=== PATIENT | male | born 1975 | race Caucasian/White ===

== ENCOUNTER 2019-05-21 10:03 | Outpatient (CLI) | payer OTHER ==
--- NOTE | 2019-05-21 10:28 | RAD ---
XR Lumbar Spine 2 Or 3 View HISTORY: Low back pain. COMPARISON: None. FINDINGS: The vertebral bodies are normal in height. Small osteophytes are seen along the course of t he spine with some mild disc narrowing at L4-5 and minimal disc narrowing at L5-S1. No spondylolisthesis. IMPRESSION: Mild arthritic changes of the spine.
== END 2019-05-21 10:04 | disposition home or self-care (01) ==
LOC: TBSIIMAG 10:03
PROVIDERS: ATTEND Neurological Surgery
DX: M54.5 Low back pain (principal); M47.816 Spondylosis without myelopathy or radiculopathy, lumbar region
CPT/HCPCS: 72100

== ENCOUNTER 2019-06-05 07:47 | Outpatient (CLI) | payer OTHER ==
[2019-06-05 10:41] LABS: Hemoglobin 15.7 g/dL (14.0-18.0); Mean Corpuscular HGB CONC 33.6 g/dL (32.0-36.0); Mean Corpuscular Hemoglobin 31.3 pg (27.0-31.0); Mean Corpuscular Volume 93.1 fL (78.0-98.0); Mean Platelet Volume 7.6 fL (7.4-10.4); Platelet Count 243 thou/uL (130-400); RBC Distribution Width 11.4 % (11.5-14.5); Red Blood Cell (RBC) Count 5.01 mill/uL (4.70-6.10); White Blood Cell (WBC) Count 8.3 thou/uL (4.8-10.8)
[2019-06-05 11:27] LABS: Prothrombin Time 13.2 SEC (12.0-14.7)
== END 2019-06-05 07:48 | disposition home or self-care (01) ==
LOC: LABBT 07:47
PROVIDERS: ATTEND Neurological Surgery
DX: Z01.812 Encounter for preprocedural laboratory examination (principal); M51.26 Other intervertebral disc displacement, lumbar region
CPT/HCPCS: 85027; 85610; 85730

== ENCOUNTER 2019-06-06 08:24 | Day surgery (SDC) | payer OTHER ==
--- NOTE | 2019-06-04 21:24 | HP ---
HISTORY OF PRESENT ILLNESS: This is a 44 year old male who reports to the office for evaluation of low back and right leg pain. The patient states that he has had low back pain for about 5 years, in the past injections and exercise have helped. About a year and a half ago, his pain started getting worse. He started having pain running down the back of his right leg to his ankle and the lateral part of his right foot. He states that recently he started to have pins and needles sensation in the same distribution. There are no left-sided symptoms. He has had 3 injections with no significant benefit and he just finished a round of physical therapy that did not give any lasting relief. He has tried anti-inflammatory, steroids, Tylenol No. 3, and tramadol. REVIEW OF SYSTEMS: A 10-point review of systems has been completed and is negative other than stated in the above HPI. PAST MEDICAL HISTORY: Allergies, migraines. PAST SURGICAL HISTORY: Lasix surgery and meniscectomy. FAMILY HISTORY: Father is alive, diagnosed with no disease. Mother is alive with asthma, thyroid disease, diabetes, and hypertension. SOCIAL HISTORY: The patient is a nonsmoker. Denies drug use. Uses alcohol occasionally. MEDICATIONS: 1. Tramadol. 2. Gabapentin. 3. Maxalt. ALLERGIES: AMOXICILLIN AND SULFA DRUGS. PHYSICAL EXAMINATION: CONSTITUTIONAL: Well appearing, well nourished, alert. RESPIRATIONS: Normal work of breathing on room air. NEUROLOGIC: Alert and oriented x3. Speech, spontaneous and fluent. Normal fund of knowledge. Cranial nerves grossly intact. EXTREMITIES: Lower extremities 5/5 bilateral strength, hip flexion, knee flexion, knee extension, dorsiflexion, plantar flexion, EHL, right S1 radiculopathy. Positive single leg raise. Right hip rotation normal bilaterally. Nontender to palpate lumbar spine. Deep tendon reflexes 2+ patellar, 2+ Achilles. Negative Babinski. No clonus. SENSORY: Decreased sensation, right lateral ankle. Gait and station, sit to stand normal. Normal gait. Heel and toe walk normal. IMAGING DATA: Lumbar MRI shows L5-S1 herniated nucleus pulposus on the right side. ASSESSMENT AND PLAN: Lumbar radiculopathy due to herniated nucleus pulposus. Dr. Cesar has offered to do a right-sided microdiskectomy L5-S1. The patient states that he understands the risks of surgery and is willing to proceed. Job ID: [id number]
[2019-06-05 09:25] VITALS: BMI 28.7
[2019-06-06] MEDS ORDERED: Clindamycin/D5W 900 mg/50 ml Premix Bag ONE ×2 (09:37→17:07)
[2019-06-06] MEDS ORDERED: Levofloxacin 500 mg/D5W 100 ml Premix Bag ONE (09:37)
[2019-06-06] MEDS ORDERED: Bupivacaine HCl 0.5%/Epinephrine 1:200,000/PF 30 ml Vial ONE (12:00)
[2019-06-06] MEDS ORDERED: Thrombin 5000 UNITS/5 ML VIAL ONE (12:00)
[2019-06-06] MEDS ORDERED: Sodium Chloride 0.9% 10 ML ONE (12:00)
[2019-06-06] MEDS ORDERED: Fentanyl 250 MCG/5 ML VIAL ONE (12:31)
[2019-06-06] MEDS ORDERED: Fentanyl 100 MCG/2 ML VIAL ONE ×3 (14:36→15:27)
[2019-06-06] MEDS ORDERED: Tamsulosin HCl 0.4 MG CAP ONE (14:50)
[2019-06-06] MEDS ORDERED: Promethazine HCl 25 MG/ML VIAL ONE (15:12)
--- NOTE | 2019-06-06 17:22 | OP ---
DATE OF PROCEDURE: 06/06/2019 MOTOR EXPERT: None. PREOPERATIVE INDICATION: Treat pain and prevent neurological deterioration. PREOPERATIVE DIAGNOSIS: Intervertebral disk herniation, right L5-S1, with S1 radiculopathy. POSTOPERATIVE DIAGNOSIS: Intervertebral disk herniation, right L5-S1, with S1 radiculopathy. OPERATIVE PROCEDURE: Right L5-S1 partial hemilaminectomy, medial facetectomy, microdiskectomy, and operating microscope. PREOPERATIVE MEDICATIONS: Clindamycin 900 mg IV and Levaquin 500 mg IV. DRAIN NUMBER: Zero. DRAIN TYPE: None. DESCRIPTION OF PROCEDURE: The patient was brought to the operating room. General endotracheal anesthesia was induced. The patient was carefully positioned prone on the operating table with the chest and hips supported by gel-filled chest rolls. A lateral fluoro radiograph was used to plan our incision. The lumbar skin was sterilely prepped and draped. We opened with a 10 blade knife. We controlled bleeding with bipolar cautery. We used monopolar cautery to dissect through subcutaneous tissues to the thoracodorsal fascia. We incised the fascia right of the midline and reflected the paraspinal muscles off the spinous process of L5 and the sacrum as well as the right lateral aspect of the lamina of L5 and S1. We placed a marker on the facet joint and took a lateral fluoro radiograph to confirm the level upon which we were operating. A self-retaining retractor was placed. A Kerrison rongeur was used to fashion our partial hemilaminectomy and medial facetectomy at L5-S1. The operative microscope was brought into the field. Under microscopic magnification and using microsurgical techniques, we carefully removed the yellow ligament in a piecemeal fashion. We identified the S1 nerve root. We performed a wide foraminotomy over the nerve root and then gently retracted it medially. Under the nerve root and its ventral aspect, there was intervertebral disk herniation in the ventral epidural space. We incised the lateral aspect of the disk herniation and we removed a large fragment of disk as a single piece. We probed the ventral epidural space and found no more disk fragments. All of the intervertebral disks in the interspace were densely adherent to the endplates. We left it intact. We irrigated copiously with bacitracin irrigation. We controlled epidural bleeding with gentle bipolar cautery. We waxed the bone edges. We infused local anesthetic in the paraspinal muscles. We closed the wound in anatomical layers. We applied a sterile dressing. This was a clean case, no contamination. Job ID: [id number]
[2019-06-06] MEDS ORDERED: Acetaminophen/Codeine 30-300mg Tablet ONE (17:23)
== END 2019-06-06 17:50 | disposition home or self-care (01) ==
LOC: SDC 08:24
PROVIDERS: ATTEND Neurological Surgery
PROC: 0SB20ZZ Excision of Lumbar Vertebral Disc, Open Approach (ICD-10-PCS; principal; 2019-06-06)
PROC: 01N90ZZ Release Lumbar Plexus, Open Approach (ICD-10-PCS; principal; 2019-06-06)
DX: M51.16 Intervertebral disc disorders with radiculopathy, lumbar region (principal); G43.909 Migraine, unspecified, not intractable, without status migrainosus; Z79.1 Long term (current) use of non-steroidal anti-inflammatories (NSAID); Z79.899 Other long term (current) drug therapy; Z88.0 Allergy status to penicillin; Z88.2 Allergy status to sulfonamides
CPT/HCPCS: 76000; J0670; J1956; J2550; J3010; J3370; J3490